=== PATIENT | female | born 1960 | race African-American/Black ===

== ENCOUNTER → 2016-09-24 | Day surgery (SDC) | payer BC ==
[~2016-09-24] MED LIST: LIDOCAINE 2% INJ (20 MG/ML) 20 ML MDV ONE
== END ==
LOC: WI 12:44
PROVIDERS: ATTEND Surgery
PROC: 0HBT3ZX Excision of Right Breast, Percutaneous Approach, Diagnostic (ICD-10-PCS; principal; 2016-09-24)
DX: C50.911 Malignant neoplasm of unspecified site of right female breast (principal); C77.3 Secondary and unspecified malignant neoplasm of axilla and upper limb lymph nodes; Z17.1 Estrogen receptor negative status [ER-]
CPT/HCPCS: 88342 ×2; 88341 ×2; 88305 ×2; 19083; 19084; J3490

== ENCOUNTER 2016-10-09 13:50 | Day surgery (SDC) | payer BC ==
[2016-10-05 11:17] LABS: HEMATOCRIT 38.7 % (36.0-47.0); HEMOGLOBIN 12.8 g/dL (12.0-15.5); HGB HCT DIFFERENCE -0.3; MEAN CORPUSCULAR HEMOGLOBIN 28.8 pg (27.0-33.4); MEAN CORPUSCULAR VOLUME 87 fl (80-97); RED BLOOD COUNT 4.43 10^6/uL (3.72-5.28); RED CELL DISTRIBUTION WIDTH 13.8 % (11.5-14.0); WHITE BLOOD COUNT 3.6 10^3/uL (4.0-10.5)
[2016-10-05 11:41] LABS: ANION GAP 11 (5-19); BLOOD UREA NITROGEN 13 mg/dL (7-20); CALCIUM 9.9 mg/dL (8.4-10.2); CARBON DIOXIDE 28 mmol/L (22-30); CHLORIDE 105 mmol/L (98-107); CREATININE RESULT 0.82 mg/dL (0.52-1.25); GLUCOSE 78 mg/dL (75-110); POTASSIUM 4.4 mmol/L (3.6-5.0); SODIUM 144.1 mmol/L (137-145)
[~2016-10-09 13:50] MED LIST changes: +ACETAMINOPHEN 325 MG TABLET PO PRN; +CEFAZOLIN 1 GM/D5W RTU 1 GM/50 ML RTUPB IV PRN; +LACTATED RINGERS 1000 ML IV PRN; +LIDOCAINE 0.5% INJ-PF (5 MG/ML) 50 ML SDV SUBCUT PRN; -LIDOCAINE 2% INJ (20 MG/ML) 20 ML MDV ONE
[2016-10-09] MEDS ORDERED: BUPIVACAINE HCL 0.25 % INJ/PF (2.5 MG/1 ML) 30 ML VIAL ONE (16:35)
[2016-10-09] MEDS ORDERED: MIDAZOLAM 2 MG/2 ML INJ ONE (18:03)
[2016-10-09] MEDS ORDERED: FENTANYL CITRATE INJ/PF 100 MCG/2 ML AMPUL ONE (18:03)
[2016-10-09] MEDS ORDERED: PROPOFOL INJ 200 MG/20 ML VIAL IV ONE (18:04)
[2016-10-09] MEDS ORDERED: ONDANSETRON HCL INJ/PF 4 MG/2 ML SDV IV PRN ×2 (18:53→19:14)
[2016-10-09] MEDS ORDERED: DIPHENHYDRAMINE HCL 50 MG/ML VIAL IV PRN (18:53)
--- NOTE | 2016-10-09 19:11 | Operative Report ---
Operative Report DATE OF SURGERY: 10/09/16 PREOPERATIVE DIAGNOSIS: Right breast cancer POSTOPERATIVE DIAGNOSIS: Right breast cancer OPERATION: Left subclavian single-lumen power port placement (permanent implanted central venous access placed under fluoroscopic guidance) SURGEON: KULDEEP SCHMITT ANESTHESIA: LMAC TISSUE REMOVED OR ALTERED: None COMPLICATIONS: None ESTIMATED BLOOD LOSS: minimal INTRAOPERATIVE FINDINGS: None PROCEDURE: Informed consent was obtained. Patient was brought to the operating room placed on the operating room table in supine position. Procedure was done under LMAC. Her left chest and neck were prepped and draped in usual sterile fashion. Local anesthetic was administered. The left subclavian vein was entered without difficulty. Guidewire was placed into the central circulation under fluoroscopic guidance. A subcutaneous pocket was created in the patient' s left upper chest. Single-lumen catheter was then tunneled between the 2 incisions. Introducer catheter was fed through the guidewire. The catheter was then fed in to the central circulation through the introducer catheter. The tip of the catheter was confirmed at the superior vena cava right atrial junction by fluoroscopy. The catheter was then attached to the PowerPort which was then implanted into the subcutaneous pocket. The catheter withdrew blood and flushed easily was flushed with heparin. Hemostasis appeared excellent. The wounds were closed with the interrupted deep dermal Vicryl sutures followed by running subcuticular Monocryl suture. Patient tolerated procedure well with no apparent complications and was taken to the recovery area in stable condition.
[2016-10-09] MEDS ORDERED: OXYCODONE-ACETAMINOPHEN 5-325 MG TABLET PO PRN (19:14)
[2016-10-09] MEDS ORDERED: RINGERS SOLUTION,LACTATED 1,000 ML IV PRN (19:14)
--- NOTE | 2016-10-09 19:14 | PDOC DISCHARGE SUMMARY ---
Discharge Summary (SDC) - Discharge Final Diagnosis: Right breast cancer Date of Surgery: 10/09/16 Discharge Date: 10/09/16 Condition: Good Treatment or Instructions: Left subclavian single-lumen power port placement. May discharge the patient home when met discharge criteria. Follow-up with me in 2 weeks. May shower in 2 days. Keep Steri-Strips on. May use PowerPort. Prescriptions: Oxycodone HCl/Acetaminophen [Percocet 5-325 mg Tablet] 1 tab PO ASDIR PRN #15 tablet PRN Reason: Discharge Activity: Activity As Tolerated - Stay active but avoid strenuous activity for a week. Report the Following to Your Physician Immediately: Fever over 101 Degrees, Unusual Bleeding, Redness, Drainage-Foul Smelling
[2016-10-09 21:31] VITALS: BP 111/73
== END 2016-10-09 21:55 | disposition home or self-care (01) ==
LOC: OROUT 13:50 → 2N 20:43 → OROUT 21:55
PROVIDERS: ATTEND Surgery
PROC: 05H633Z Insertion of Infusion Device into Left Subclavian Vein, Percutaneous Approach (ICD-10-PCS; principal; 2016-10-09 16:00)
DX: C50.911 Malignant neoplasm of unspecified site of right female breast (principal)
CPT/HCPCS: 36415; 85027; 80048; 71020; 71010; 77001; 36561; C1788; J2250; J0690; J3010; J2704; J1642; 532

== ENCOUNTER → 2016-10-11 | Outpatient (CLI) | payer BC | LOC: RAD 14:11 | PROVIDERS: ATTEND Internal Medicine | DX: C50.411 Malignant neoplasm of upper-outer quadrant of right female breast (principal); N85.2 Hypertrophy of uterus; R59.0 Localized enlarged lymph nodes | CPT/HCPCS: 71260; 74177 ==

== ENCOUNTER → 2016-10-15 | Outpatient (CLI) | payer BC | LOC: RAD 10:49 | PROVIDERS: ATTEND Internal Medicine | DX: Z13.6 Encounter for screening for cardiovascular disorders (principal); C50.411 Malignant neoplasm of upper-outer quadrant of right female breast | CPT/HCPCS: 78472; A9560; Q9969 ==

== ENCOUNTER → 2016-10-19 | Outpatient (CLI) | payer BC | LOC: RAD 08:21 | PROVIDERS: ATTEND Internal Medicine | DX: C50.411 Malignant neoplasm of upper-outer quadrant of right female breast (principal) | CPT/HCPCS: 78306; A9503; Q9969 ==

== ENCOUNTER → 2017-02-21 | Outpatient (CLI) | payer BC ==
--- NOTE | 2017-02-22 17:44 | RADIOLOGY REPORT (SQ) ---
EXAM DESCRIPTION: MRI BREAST BILAT W AND/OR WO COMPLETED DATE/TIME: 02/21/2017 9:06 am REASON FOR STUDY: R BREAST CA C50.919 MALIGNANT NEOPLASM OF UNSP SITE OF UNSPECIFIED FEMAL COMPARISON: Right breast mammograms and ultrasound guided core biopsy 09/24/2016 CT chest abdomen pelvis 10/11/2016 PATHOLOGIC CORRELATION: Poorly differentiated carcinoma, favor invasive ductal carcinoma right prima ry mass 10 o'clock position, with metastatic disease in the adjacent right axillary lymph node, biops y performed 09/24/2016. CONTRAST TYPE AND DOSE: 20 mL Multihance. RENAL FUNCTION: GFR > 60. TECHNIQUE: MR imaging performed with a dedicated breast coil. Pre contrast T1 and T2 weighted images . Pre contrast and post contrast enhanced T1 weighted images with fat saturation. Subtraction images, 3D thick and thin MIPS, and kinetic analysis performed on an independent workstat ion. (Formarum workstation) Magnet strength: 1.5 T LIMITATIONS: None. FINDINGS: BREAST DENSITY: c. The breasts are heterogeneously dense, which may obscure small masses. BACKGROUND PARENCHYMAL ENHANCEMENT:None. RIGHT BREAST: The previously biopsied right breast mass at 10 o'clock position, currently measures 1. 5 x 1.4 cm in size with a ferromagnetic artifact clip present (was 2.2 x 2.1 cm on 09/24/2016). No si gnificant contrast enhancement of the mass today. No clumped, regional/segmental ductal enhancement . CHEST WALL: Normal tissue planes. No abnormal internal mammary nodes. AXILLA: The previously biopsied right axillary lymph node currently measures 1.6 x 1.3 cm in size wi th metallic artifact from biopsy clip. No significant contrast enhancement (was 4 x 1.7 cm in size o n 09/24/2016). LEFT BREAST:No enhancing or suspicious masses. No clumped, regional/segmental ductal enhancement. CHEST WALL: Normal tissue planes. No abnormal internal mammary nodes. AXILLA: Normal axillary and retro-pectoral nodes. OTHER:No identified liver, bone, or lung lesions. No other significant incidental findings. IMPRESSION: Treatment response, with decrease in size of right breast 10 o'clock malignant nodule an d right axillary a malignant adenopathy. No MR evidence for malignancy left breast. No MR evidence of metastatic disease the field of view of today's study. BIRAD: RIGHT BREAST: 6 Known biopsy-proven malignancy. Appropriate action should be taken. LEFT BREAST: 1 Negative. RECOMMENDATION: RECOMMENDED FOLLOW-UP: As per surgeon TECHNICAL DOCUMENTATION: JOB ID: [id number] [employer]- All Rights Reserved
== END ==
LOC: RAD 07:33
PROVIDERS: ATTEND Surgery
DX: C50.919 Malignant neoplasm of unspecified site of unspecified female breast (principal)
CPT/HCPCS: 82565; C8906; 77059

== ENCOUNTER → 2017-02-28 | Day surgery (SDC) | payer BC ==
[~2017-02-28] MED LIST changes: -ACETAMINOPHEN 325 MG TABLET PO PRN; -CEFAZOLIN 1 GM/D5W RTU 1 GM/50 ML RTUPB IV PRN; -LACTATED RINGERS 1000 ML IV PRN; -LIDOCAINE 0.5% INJ-PF (5 MG/ML) 50 ML SDV SUBCUT PRN; +LIDOCAINE 2% INJ (20 MG/ML) 20 ML MDV ONE
== END ==
LOC: WI 14:13
PROVIDERS: ATTEND Surgery
PROC: 0HBT3ZX Excision of Right Breast, Percutaneous Approach, Diagnostic (ICD-10-PCS; principal; 2017-02-28)
DX: C50.911 Malignant neoplasm of unspecified site of right female breast (principal); C77.3 Secondary and unspecified malignant neoplasm of axilla and upper limb lymph nodes
CPT/HCPCS: 88342 ×2; 88305 ×2; 19083; J3490

== ENCOUNTER 2017-03-05 10:15 | Day surgery (SDC) | payer BC ==
[2017-02-27 11:15] LABS: HEMATOCRIT 32.8 % (36.0-47.0); HGB HCT DIFFERENCE 0.2; MEAN CORPUSCULAR HEMOGLOBIN 30.4 pg (27.0-33.4); MEAN CORPUSCULAR HGB CONC 33.3 g/dL (32.0-36.0); MEAN CORPUSCULAR VOLUME 91 fl (80-97); RED CELL DISTRIBUTION WIDTH 16.2 % (11.5-14.0); WHITE BLOOD COUNT 7.5 10^3/uL (4.0-10.5)
[2017-02-27 11:41] LABS: ANION GAP 10 (5-19); BLOOD UREA NITROGEN 13 mg/dL (7-20); CALCIUM 9.6 mg/dL (8.4-10.2); CARBON DIOXIDE 25 mmol/L (22-30); CHLORIDE 104 mmol/L (98-107); CREATININE RESULT 0.76 mg/dL (0.52-1.25); GLUCOSE 87 mg/dL (75-110); POTASSIUM 4.4 mmol/L (3.6-5.0); SODIUM 139.3 mmol/L (137-145)
[~2017-03-05 10:15] MED LIST changes: +ACETAMINOPHEN 325 MG TABLET PO PRN; +BUPIVACAINE HCL 0.25 % INJ/PF (2.5 MG/1 ML) 30 ML VIAL ONE; +CEFAZOLIN 1 GM/D5W RTU 1 GM/50 ML RTUPB IV PRN; +LACTATED RINGERS 1000 ML IV PRN; +LIDOCAINE 0.5% INJ-PF (5 MG/ML) 50 ML SDV SUBCUT PRN; -LIDOCAINE 2% INJ (20 MG/ML) 20 ML MDV ONE; +SUCCINYLCHOLINE CHLORIDE INJ 200 MG/10 ML VIAL ONE
[2017-03-05] MEDS ORDERED: LIDOCAINE 2% INJ (20 MG/ML) 20 ML MDV ONE (10:26)
[2017-03-05] MEDS ORDERED: HYDROMORPHONE HCL INJ/PF 2 MG/ML AMPULE ONE (13:16)
[2017-03-05] MEDS ORDERED: ONDANSETRON HCL INJ/PF 4 MG/2 ML SDV ONE (13:17)
[2017-03-05] MEDS ORDERED: ACETAMINOPHEN 100 ML IV ONE (13:17)
[2017-03-05] MEDS ORDERED: PROPOFOL INJ 200 MG/20 ML VIAL IV ONE (13:17)
[2017-03-05] MEDS ORDERED: MIDAZOLAM 2 MG/2 ML INJ ONE (13:17)
[2017-03-05] MEDS ORDERED: DEXAMETHASONE SOD PHOSPHATE INJ 4 MG/1 ML VIAL ONE (13:17)
[2017-03-05] MEDS ORDERED: FENTANYL CITRATE INJ/PF 100 MCG/2 ML AMPUL ONE (13:17)
[2017-03-05] MEDS ORDERED: FENTANYL CITRATE INJ/PF 100 MCG/2 ML AMPUL IV PRN ×3 (14:11)
[2017-03-05] MEDS ORDERED: DIPHENHYDRAMINE HCL 50 MG/ML VIAL IV PRN (14:11)
[2017-03-05] MEDS ORDERED: ONDANSETRON HCL INJ/PF 4 MG/2 ML SDV IV PRN ×2 (14:11→17:06)
[2017-03-05] MEDS ORDERED: MEPERIDINE HCL/PF INJ 25 MG/1 ML DISP.SYRIN IV PRN (14:11)
[2017-03-05] MEDS ORDERED: MORPHINE SULFATE 10 MG/ML INJ IV PRN (14:11)
[2017-03-05] MEDS ORDERED: PROMETHAZINE HCL INJ 25 MG/1 ML VIAL IV PRN (14:11)
[2017-03-05] MEDS ORDERED: OXYCODONE-ACETAMINOPHEN 5-325 MG TABLET PO PRN (17:06)
[2017-03-05] MEDS ORDERED: NORMAL SALINE 1000 ML 1,000 ML IV PRN (17:06)
--- NOTE | 2017-03-05 17:06 | Operative Report ---
Operative Report DATE OF SURGERY: 03/05/17 PREOPERATIVE DIAGNOSIS: Right breast cancer with metastasis to the axilla. POSTOPERATIVE DIAGNOSIS: Same OPERATION: Right breast wide local excision for malignancy. Right axillary dissection. SURGEON: KULDEEP SCHMITT ANESTHESIA: GA TISSUE REMOVED OR ALTERED: Right upper outer quadrant and axillary tail of Rashid breast. Right axillary dissection. COMPLICATIONS: None ESTIMATED BLOOD LOSS: 100 cc INTRAOPERATIVE FINDINGS: Enlarged axillary lymph nodes. Scar tissue underneath scar just above the nipple areolar complex extending laterally. Region of scar tissue negative for malignancy on frozen section. X-ray of the specimen demonstrated clip marking the axillary node and clipped marking the original tumor prior to neoadjuvant therapy. PROCEDURE: Informed consent was obtained. Patient was brought to the operating room placed on the operating room table in the supine position after satisfactory induction of general anesthesia patient's right breast and axilla were prepped and draped in usual sterile fashion. Patient's original tumor laid at the region near the axillary tail of Rashid. A incision was made along the axillary hairline and extended it to the upper outer quadrant of the right breast. At the region of the right breast superior flaps were made at the junction between the breast and the subcutaneous tissue. I intentionally made these flaps slightly thin so that I would avoid positive anterior margins. Inferior flap and medial and lateral flaps were also made in similar fashion. At the inferior flap as I approached region of her pre-existing scar just above the nipple areolar complex extending laterally, I encountered dense tissue consistent with scar tissue underlying this incision. At this point I came down posteriorly making this the inferior margin. The breast tissue was taken along with the pectoralis fascia. Dissection was then continued to the right axilla. The wide local excision of her upper outer quadrant of breast tissue along with the axillary tail of Rashid was taken in continuity with the axillary dissection. Complete level 1 and level 2 axillary lymph nodes were taken in continuity with the breast specimen. Critical structures were identified: Axillary vein, long thoracic and the thoracodorsal nerves were all identified and protected during the dissection. Palpation of the specimen revealed the palpable nodes within the axillary dissection. Hemostasis was achieved with electrocautery and surgical clips. Hemostasis appeared excellent. Jairo-Ríos drain was placed and brought out through a separate incision at the inferior flap and sutured in place. The operative field was irrigated with sterile water and the irrigant aspirated out. X-ray of the surgical specimen demonstrated the marking clips that marked the tumor as well as the axillary node that was positive. I oriented the specimen for the pathologist as well as the radiologist. I asked pathology to do a frozen section on the inferior margin where I had encountered the scar tissue. Frozen section demonstrated no evidence of malignancy at the inferior margin all consistent with my clinical impression. The wound was closed with deep dermal interrupted Vicryl sutures followed by running subcuticular Prolene pullout suture. Patient tolerated procedure well with no apparent complications and was taken to the recovery area in stable condition.
--- NOTE | 2017-03-06 09:16 | PDOC PROGRESS REPORT ---
Subjective Progress Note for:: 03/06/17 Subjective:: Feels well no complaints Physical Exam Vital Signs: Temp Pulse Resp BP Pulse Ox 98.3 F 92 20 116/56 L 100 03/06/17 07:57 03/06/17 07:57 03/06/17 07:57 03/06/17 07:57 03/06/17 07:57 Intake & Output 03/05/17 03/06/17 03/07/17 06:59 06:59 06:59 Intake Total 2810 Output Total 1170 Balance 1640 Weight 73.3 kg General appearance: PRESENT: no acute distress, cooperative Respiratory exam: PRESENT: clear to auscultation jeanie, other - Surgical wound clean dry and intact with no swelling. Drain output is blood-tinged. No right arm swelling. Good range of motion of right arm Cardiovascular exam: PRESENT: RRR Results Laboratory Results: 02/27/17 10:28 02/27/17 10:28 Assessment & Plan - Diagnosis (1) Breast cancer, right Qualifiers: Breast location: upper outer quadrant of breast Patient sex: female Is this a current diagnosis for this admission?: Yes Plan: Status post axillary dissection with wide local excision. Patient looks good. Will discharge patient home. Follow-up next week. Patient instructed on range of motion exercises and Jairo-Ríos drain care. Patient also encouraged to keep right arm elevated when she is at rest or sleeping.
--- NOTE | 2017-03-06 10:02 | DISCHARGE SUMMARY E ---
Discharge Summary NAME: CARYL LAN : 1960 AGE: 56Y ADMITTED: 03/05/2017 DISCHARGED: 03/06/2017 DISCHARGE DIAGNOSIS: Right breast cancer, metastatic to the right axilla. PROCEDURE PERFORMED DURING HOSPITALIZATION: Right breast wide local excision. Right axillary dissection. Performed on March 05, 2017. HOSPITAL COURSE: Patient underwent the above mentioned procedure. She did well postoperatively. She was noted with clean, dry, and intact wound with no swelling. Jairo-Ríos output was blood tinged. Patient was moving her arm well at the time of discharge with no swelling. Patient has now been discharged to home in good condition. She will follow up with our office next week. She is encouraged to stay active but avoid strenuous activity. Range of motion exercise were give to the patient for her right arm. She is encouraged to keep the right arm elevated when she is resting or asleep. She may follow a regular diet. DISCHARGE MEDICATIONS: Percocet 1-2 p.o. q.4 hours p.r.n. pain. DICTATING PHYSICIAN: TRINITY SCHMITT M.D. [id number] PHY#: [id number] ID: [id number] JOB#: [id number] ACCT: [id number] cc:TRINITY SCHMITT M.D. >
[2017-03-06 10:34] VITALS: BP 125/50
== END 2017-03-06 11:00 | disposition home or self-care (01) ==
LOC: OROUT 10:15 → 4S 18:26 → OROUT 03-06 11:00
PROVIDERS: ATTEND Surgery
PROC: 07B50ZX Excision of Right Axillary Lymphatic, Open Approach, Diagnostic (ICD-10-PCS; 2017-03-05)
PROC: 0HBT0ZZ Excision of Right Breast, Open Approach (ICD-10-PCS; principal; 2017-03-05 12:00)
DX: C50.919 Malignant neoplasm of unspecified site of unspecified female breast (principal)
CPT/HCPCS: 36415; 85027; 80048; 88342 ×2; 88307 ×2; 88331 ×2; 97165; 76098; 19302; J2250; J0690; J1100; J3010; J1170; J0330; J2405; J2704; J0131; 01610; J3490

== ENCOUNTER → 2017-04-30 | Outpatient (CLI) | payer BC ==
--- NOTE | 2017-04-30 15:40 | RADIOLOGY REPORT (SQ) ---
EXAM DESCRIPTION: NM MUGA REST COMPLETED DATE/TIME: 04/30/2017 1:46 pm REASON FOR STUDY: ENCNTR FOR F/U EXAM AFTER COMPLETED TREATMENT FOR MALIGNANT NEOPLASM (Z08) Z08 EN CNTR FOR FOLLOW-UP EXAM AFTER TRTMT FOR MALIGNANT NEOP COMPARISON: None. RADIONUCLIDE AND DOSE: 23.7 mCi of technetium 99 M pyrophosphate The route of agent administration: Intravenous TECHNIQUE: Following administration of the radionuclide, gated images of the heart are obtained in t hree projections. Left ventricular functional analysis performed. LIMITATIONS: None. FINDINGS: LEFT VENTRICULAR FUNCTION: EJECTION FRACTION: 68%. END-DIASTOLIC VOLUME: 103 mL. END-SYSTOLIC VOLUME: 36 mL. WALL MOTION: No focal wall motion abnormalities. OTHER: No other significant finding. IMPRESSION: NORMAL CARDIAC MUGA STUDY. NORMAL LEFT VENTRICULAR FUNCTION WITH VALUES ABOVE. TECHNICAL DOCUMENTATION: JOB ID: [id number] [employer]- All Rights Reserved
== END ==
LOC: RAD 10:58
PROVIDERS: ATTEND Internal Medicine
DX: Z08 Encounter for follow-up examination after completed treatment for malignant neoplasm (principal)
CPT/HCPCS: 78472; A9560; Q9969

== ENCOUNTER → 2017-05-06 | Outpatient (CLI) | payer BC ==
--- NOTE | 2017-05-06 09:20 | WOMENS IMAGING REPORT ---
EXAM DESCRIPTION: BONE DENSITY HIP/SPINE COMPLETED DATE/TIME: 05/06/2017 9:12 am REASON FOR STUDY: OSTEOPOROSIS M81.0 AGE-RELATED OSTEOPOROSIS W/O CURRENT PATHOLOGICAL FRAC COMPARISON: None. TECHNIQUE: Dual-Energy X-ray Absorptiometry (DEXA) of the AP Spine and Hip. LIMITATIONS: None. FINDINGS: LUMBAR SPINE: The bone mineral density (BMD) measured from L1-L4 in the AP projection correlates with a T-score of -2.1, which is osteopenic as defined by the World Health Organization. HIP: The bone mineral density (BMD) measured in the left femoral neck at the hip correlates with a T-score of -0.2, which is normal as defined by the World Health Organization. IMPRESSION: 1. LUMBAR SPINE: Osteopenic 2. HIP: Normal COMMENT: The World Health Organization defines low BMD as follows: T-score: Normal: Greater than -1.0 Osteopenia: Between -1.0 and -2.5 Osteoporosis: Less than -2.5 without fractures Established osteoporosis: Less than -2.5 with fractures In general, you may wish to consider: Diagnosis Treatment Follow-up DEXA Normal BMD Prevention 2-3 years Osteopenia Prevention/Therapy 1-2 years Osteoporosis Therapy Yearly TECHNICAL DOCUMENTATION: JOB ID: [id number] [employer]- All Rights Reserved
== END ==
LOC: WI 08:29
PROVIDERS: ATTEND Internal Medicine
DX: M81.0 Age-related osteoporosis without current pathological fracture (principal)
CPT/HCPCS: 77080

== ENCOUNTER → 2017-07-23 | Outpatient (CLI) | payer BC ==
--- NOTE | 2017-07-23 12:57 | RADIOLOGY REPORT (SQ) ---
EXAM DESCRIPTION: NM MUGA REST COMPLETED DATE/TIME: 07/23/2017 12:47 pm REASON FOR STUDY: ENCTR FOR F/U EXAM POST COMPLETED TX FOR MALIGNANT NEOPLASM (Z08), BREAST C Z08 E NCNTR FOR FOLLOW-UP EXAM AFTER TRTMT FOR MALIGNANT NEOP C50.411 MALIG NEOPLM OF UPPER-OUTER QUADRANT OF RIGHT FEMALE Z51.11 ENCOUNTER FOR ANTINEOPLASTIC CHEMOTHERAPY COMPARISON: Resting Muga 04/30/2017 RADIONUCLIDE AND DOSE: 26.1 mCi technetium 99 M pyrophosphate The route of agent administration: Intravenous TECHNIQUE: Following administration of the radionuclide, gated images of the heart are obtained in t hree projections. Left ventricular functional analysis performed. LIMITATIONS: None. FINDINGS: LEFT VENTRICULAR FUNCTION: EJECTION FRACTION: 68%. END-DIASTOLIC VOLUME: 120 mL. END-SYSTOLIC VOLUME: 40 mL. WALL MOTION: No focal wall motion abnormalities. OTHER: No other significant finding. IMPRESSION: NORMAL CARDIAC MUGA STUDY. LEFT VENTRICULAR ejection fraction 68%. TECHNICAL DOCUMENTATION: JOB ID: [id number] [employer]- All Rights Reserved
== END ==
LOC: RAD 10:32
PROVIDERS: ATTEND Internal Medicine
DX: Z08 Encounter for follow-up examination after completed treatment for malignant neoplasm (principal); C50.411 Malignant neoplasm of upper-outer quadrant of right female breast
CPT/HCPCS: 78472; A9560; Q9969

== ENCOUNTER → 2017-09-10 | Outpatient (CLI) | payer BC ==
--- NOTE | 2017-09-11 18:12 | WOMENS IMAGING REPORT ---
EXAM DESCRIPTION: BILAT DIAGNOSTIC MAMMO W/CAD COMPLETED DATE/TIME: 09/10/2017 10:41 am REASON FOR STUDY: BREAST CANCER C50.411 MALIG NEOPLM OF UPPER-OUTER QUADRANT OF RIGHT FEMALE COMPARISON: Multiple since 2010 TECHNIQUE: Standard craniocaudal and mediolateral oblique views of each breast recorded using digita l acquisition. Additional right breast 90 mediolateral view LIMITATIONS: None. FINDINGS: RIGHT BREAST MASSES: No suspicious masses. CALCIFICATIONS: No new or suspicious calcifications. ARCHITECTURAL DISTORTION: None. DEVELOPING DENSITY: None. ASYMMETRY: None noted. OTHER: Postoperative changes right breast upper outer quadrant LEFT BREAST MASSES: No suspicious masses. CALCIFICATIONS: No new or suspicious calcifications. ARCHITECTURAL DISTORTION: None. DEVELOPING DENSITY: None. ASYMMETRY: None noted. OTHER: No other significant finding. Read with the assistance of CAD: .[facility] - R2 Cenova Version 1.3 .[facility] - R2 Cenova Version 1.3 .[facility] Imaging - R2 Cenova Version 2.4 .[facility] - R2 Cenova Version 2.4 .[facility] - R2 Monitoring Specialist Version 9.2 IMPRESSION: Post therapeutic changes right breast. No mammographic evidence for malignancy bilaterally. BREAST DENSITY: b. There are scattered areas of fibroglandular density. BIRAD: 2 Benign findings. RECOMMENDATION: RECOMMENDED FOLLOW UP: Please continue right breast diagnostic, left breast screenin g mammography in September 2018. SPECIFIC INTERVENTION/IMAGING/CONSULTATION RECOMMENDED:No additional intervention/ imaging/consultati on needed at this time. COMMUNICATION:Patient notified by letter COMMENT: The patient has been notified of the results by letter per SA requirements. Additional no tification policies are in place for contacting patient with suspicious or incomplete findings. Quality ID #225: The [employer] recommends an annual screening mammogram for women aged 40 years or over. This facility utilizes a reminder system to ensure that all patients receive reminder letters, and/or direct phone calls for appointments. This includes reminders for routine scr eening mammograms, diagnostic mammograms, or other Breast Imaging Interventions when appropriate. Th is patient will be placed in the appropriate reminder system. The [employer] (ACR) has developed recommendations for screening MRI of the breast s in certain patient populations, to be used in conjunction with mammography. Breast MRI surveillanc e may be appropriate for women with more than 20% lifetime risk of developing breast cancer as deter mined by genetic testing, significant family history of the disease, or history of mantle radiation f or Hodgkins Disease. ACR Practice Guidelines 2008. TECHNICAL DOCUMENTATION: FINDING NUMBER: (1) ASSESSMENT: (1) JOB ID: [id number] [employer]- All Rights Reserved Reading location - IP/workstation name: [email or web address]
== END ==
LOC: WI 09:32
PROVIDERS: ATTEND Internal Medicine
DX: C50.411 Malignant neoplasm of upper-outer quadrant of right female breast (principal)
CPT/HCPCS: 77066

== ENCOUNTER → 2017-10-02 | Outpatient (CLI) | payer BC ==
--- NOTE | 2017-10-02 15:02 | RADIOLOGY REPORT (SQ) ---
EXAM DESCRIPTION: NM MUGA REST COMPLETED DATE/TIME: 10/02/2017 2:43 pm REASON FOR STUDY: S/P CHEMO (Z08), BREAST CA (C50.411) Z08 ENCNTR FOR FOLLOW-UP EXAM AFTER TRTMT FO R MALIGNANT NEOP COMPARISON: MUGA scan 10/15/2016, 04/30/2017, 07/23/2017 RADIONUCLIDE AND DOSE: 25.5 mCi technetium 99m labeled red blood cells The route of agent administration: Intravenous TECHNIQUE: Following administration of the radionuclide, gated images of the heart are obtained in t hree projections. Left ventricular functional analysis performed. LIMITATIONS: None. FINDINGS: LEFT VENTRICULAR FUNCTION: EJECTION FRACTION: 74%. END-DIASTOLIC VOLUME: 120 mL. END-SYSTOLIC VOLUME: 28 mL. WALL MOTION: No focal wall motion abnormalities. OTHER: No other significant finding. IMPRESSION: NORMAL CARDIAC MUGA STUDY. NORMAL LEFT VENTRICULAR ejection fraction of 74%. TECHNICAL DOCUMENTATION: JOB ID: [id number] [employer]- All Rights Reserved Reading location - IP/workstation name: [email or web address]
== END ==
LOC: RAD 10:57
PROVIDERS: ATTEND Internal Medicine
DX: Z08 Encounter for follow-up examination after completed treatment for malignant neoplasm (principal); C50.411 Malignant neoplasm of upper-outer quadrant of right female breast
CPT/HCPCS: 78472; A9560; Q9969

== ENCOUNTER → 2018-09-16 | Outpatient (CLI) | payer BC ==
--- NOTE | 2018-09-16 16:02 | WOMENS IMAGING REPORT ---
EXAM DESCRIPTION: BILAT DIAGNOSTIC MAMMO W/CAD COMPLETED DATE/TIME: 09/16/2018 8:31 am REASON FOR STUDY: C50.411 MALIGNANT NEOPLASM OF UPPER-OUTER QUADRANT OF RIGHT FEMALE BREAST C50.411 MALIG NEOPLM OF UPPER-OUTER QUADRANT OF RIGHT FEMALE COMPARISON: Multiple since 2010 TECHNIQUE: Standard craniocaudal and mediolateral oblique views of each breast recorded using digita l acquisition. Additional right whole breast 90 mediolateral view and right breast compression magnification views in the CC and MLO orientations, over the lumpectomy site LIMITATIONS: None. FINDINGS: RIGHT BREAST MASSES: No suspicious masses. CALCIFICATIONS: No new or suspicious calcifications. ARCHITECTURAL DISTORTION: None. DEVELOPING DENSITY: None. ASYMMETRY: None noted. OTHER: Postoperative changes are present in the far right upper outer quadrant. LEFT BREAST MASSES: No suspicious masses. CALCIFICATIONS: No new or suspicious calcifications. ARCHITECTURAL DISTORTION: None. DEVELOPING DENSITY: None. ASYMMETRY: None noted. OTHER: No other significant finding. Read with the assistance of CAD: .[facility] - R2 Cenova Version 1.3 .[facility] Imaging - R2 Cenova Version 2.1 .[facility] Imaging - R2 Cenova Version 2.4 .[facility] [place] - R2 Cenova Version 2.4 .[facility] - R2 Supervisor Cooler Service Version 9.2 IMPRESSION: No mammographic evidence for malignancy bilaterally BREAST DENSITY: b. There are scattered areas of fibroglandular density. BIRAD: 2 Benign findings. RECOMMENDATION: RECOMMENDED FOLLOW UP: Please continue right breast diagnostic, left breast screenin g mammography in August 2019 SPECIFIC INTERVENTION/IMAGING/CONSULTATION RECOMMENDED:No additional intervention/ imaging/consultati on needed at this time. COMMUNICATION:Patient notified by letter COMMENT: The patient has been notified of the results by letter per SA requirements. Additional no tification policies are in place for contacting patient with suspicious or incomplete findings. Quality ID #225: The [employer] recommends an annual screening mammogram for women aged 40 years or over. This facility utilizes a reminder system to ensure that all patients receive reminder letters, and/or direct phone calls for appointments. This includes reminders for routine scr eening mammograms, diagnostic mammograms, or other Breast Imaging Interventions when appropriate. Th is patient will be placed in the appropriate reminder system. The [employer] (ACR) has developed recommendations for screening MRI of the breast s in certain patient populations, to be used in conjunction with mammography. Breast MRI surveillanc e may be appropriate for women with more than 20% lifetime risk of developing breast cancer as deter mined by genetic testing, significant family history of the disease, or history of mantle radiation f or Hodgkins Disease. ACR Practice Guidelines 2008. TECHNICAL DOCUMENTATION: FINDING NUMBER: (1) ASSESSMENT: (1) JOB ID: [id number] [employer]- All Rights Reserved Reading location - IP/workstation name: [email or web address]
== END ==
LOC: WI 08:13
PROVIDERS: ATTEND Internal Medicine
DX: C50.411 Malignant neoplasm of upper-outer quadrant of right female breast (principal)
CPT/HCPCS: 77066

== ENCOUNTER → 2019-09-21 | Outpatient (CLI) | payer BC ==
--- NOTE | 2019-09-21 11:18 | WOMENS IMAGING REPORT ---
EXAM DESCRIPTION: 3D DX MAMMO BILAT COMPLETED DATE/TIME: 09/21/2019 9:44 am REASON FOR STUDY: C50.411 MALIGNANT NEOPLASM OF UPPER-OUTER QUADRANT OF RIGHT FEMALE BREAST C50.411 MALIG NEOPLM OF UPPER-OUTER QUADRANT OF RIGHT FEMALE COMPARISON: 2017 and 2018. EXAM PARAMETERS: Standard craniocaudal and mediolateral oblique views of each breast recorded using digital acquisition and breast tomosynthesis. Right true lateral view. Read with the assistance of CAD: .[facility] - [employer] Version 9.2 LIMITATIONS: None. FINDINGS: RIGHT BREAST MASSES: No suspicious masses. CALCIFICATIONS: No new or suspicious calcifications. ARCHITECTURAL DISTORTION: None. ASYMMETRY: None noted. OTHER: Mild postoperative volume loss, previous surgery. Chronic appearance. LEFT BREAST MASSES: No suspicious masses. CALCIFICATIONS: No new or suspicious calcifications. ARCHITECTURAL DISTORTION: None. ASYMMETRY: None noted. OTHER: No other significant finding. IMPRESSION: No worrisome findings. BREAST DENSITY: c. The breasts are heterogeneously dense, which may obscure small masses. BIRAD: ASSESSMENT: 2 Benign findings. RECOMMENDATION: RECOMMENDED FOLLOW UP: Yearly mammographic follow-up. SPECIFIC INTERVENTION/IMAGING/CONSULTATION RECOMMENDED:No additional intervention/ imaging/consultati on needed at this time. COMMUNICATION:No significant abnormalities to discuss with the patient today. COMMENT: The patient has been notified of the results by letter per MQSA requirements. Additional no tification policies are in place for contacting patient with suspicious or incomplete findings. Quality ID #225: The [employer] recommends an annual screening mammogram for women aged 40 years or over. This facility utilizes a reminder system to ensure that all patients receive reminder letters, and/or direct phone calls for appointments. This includes reminders for routine scr eening mammograms, diagnostic mammograms, or other Breast Imaging Interventions when appropriate. Th is patient will be placed in the appropriate reminder system. TECHNICAL DOCUMENTATION: FINDING NUMBER: (1) ASSESSMENT: (1) JOB ID: [id number] 2010 [employer]- All Rights Reserved Reading location - IP/workstation name: [email or web address]
== END ==
LOC: WI 08:34
PROVIDERS: ATTEND Nurse Practitioner Family
DX: C50.411 Malignant neoplasm of upper-outer quadrant of right female breast (principal)
CPT/HCPCS: 77066; G0279; 77062

== ENCOUNTER → 2020-02-08 | Outpatient (CLI) | payer BC ==
--- NOTE | 2020-02-08 10:15 | WOMENS IMAGING REPORT ---
EXAM DESCRIPTION: BONE DENSITY HIP/SPINE IMAGES COMPLETED DATE/TIME: 02/08/2020 9:47 am REASON FOR STUDY: M81.0 AGE-RELATED OSTEOPOROSIS WITHOUT CURRENT PATHOLOGICAL FRACTURE M81.0 AGE-RE LATED OSTEOPOROSIS W/O CURRENT PATHOLOGICAL FRAC COMPARISON: 05/06/2017 TECHNIQUE: Dual-Energy X-ray Absorptiometry (DEXA) of the AP Spine and Hip. LIMITATIONS: None. FINDINGS: LUMBAR SPINE: The bone mineral density (BMD) measured from L1-L4 in the AP projection correlates with a T-score of -2.5, which is osteoporosis as defined by the World Health Organization. There has been a -5.0% perez ge since baseline. HIP: The bone mineral density (BMD) measured in the left hip correlates with a T-score of -0.6, which is n ormal as defined by the World Health Organization. There has been a positive 0.9% change since basel ine. IMPRESSION: 1. LUMBAR SPINE: OSTEOPOROSIS. 2. HIP: NORMAL. COMMENT: The World Health Organization defines low BMD as follows: T-score: Normal: Greater than -1.0 Osteopenia: Between -1.0 and -2.5 Osteoporosis: Less than -2.5 without fractures Established osteoporosis: Less than -2.5 with fractures In general, you may wish to consider: Diagnosis Treatment Follow-up DEXA Normal BMD Prevention 2-3 years Osteopenia Prevention/Therapy 1-2 years Osteoporosis Therapy Yearly TECHNICAL DOCUMENTATION: JOB ID: [id number] 2010 [employer]- All Rights Reserved Reading location - IP/workstation name: [email or web address]
== END ==
LOC: WI 09:15
PROVIDERS: ATTEND Internal Medicine
DX: M81.0 Age-related osteoporosis without current pathological fracture (principal)
CPT/HCPCS: 77080